=== PATIENT | female | born 1980 | race Caucasian/White ===

== ENCOUNTER → 2017-01-05 | Outpatient (CLI) | payer OTHER ==
[~2017-01-05] MED LIST: ACID REDUCER75 MG PO; ADDERALL 10 MG10 MG PO; ADDERALL 20 MG20 M1 PO; AMITIZA 24 MCG24 MC1 PO; ATIVAN1 MG PO; CELEBREX 200 M200 M1 PO; CLONIDINE0.1 PO; CVS BUFFERED A325 MG PO; DIPHENHIST50 MG PO; DOXYCYCLINE 10100 MG PO; GARCINIA CAMBO1 EACH PO; IRON325 PO; OXYCONTIN10 M1 PO; PEPCID20 MG PO; PERCOCET 10-321 EACH PO; PERCOCET 5-3251 EACH; PROBIOTIC1 EAC1 PO; PROBIOTIC1 EAC2 PO; REGLAN 5 MG TAB5 MG PO; TRAMADOL 50 MG50 MG PO; ULTRA-LIGHT RO1 EACH MC; ULTRAM 50MG TAB50 MG PO; ULTRAM ER100 MG PO; UNICOMPLEX M TA1 TA1 PO; VENTOLIN HFA 1818 GM INH; XARELTO10 MG PO; [UNRECOGNIZED DRUG - OTHER]
== END ==
LOC: NUC 08:16
DX: M85.80 Other specified disorders of bone density and structure, unspecified site (principal); Z96.643 Presence of artificial hip joint, bilateral

== ENCOUNTER → 2017-01-08 | Outpatient (CLI) | payer OTHER | LOC: CAT 14:18 | DX: R06.02 Shortness of breath (principal); R06.00 Dyspnea, unspecified ==

== ENCOUNTER → 2017-01-15 | Outpatient (CLI) | payer OTHER | LOC: MRI 08:51 | DX: M54.9 Dorsalgia, unspecified (principal); R07.9 Chest pain, unspecified ==

== ENCOUNTER → 2017-02-06 | Outpatient (CLI) | payer OTHER ==
[~2017-02-06] VITALS: Ht 170.2 cm; Wt 111.8 kg
[~2017-02-06] MED LIST changes: +LIDODERM1 EACH TRANSDERM; +MOBIC15 MG PO; +NORCO 10-325 T1 EACH PO
--- NOTE | ~2017-02-06 | HPC ---
[facility] [place] [address] [place] [address] PAIN MANAGEMENT CONSULTATION Name: KRYSTINA COLÓN Room #: REG [facility].#: [id number] Admission: 02/06/17 Attend Phys: Faisal Green MD Discharge: Date of : 80 Report #: [id number] THIS REPORT FOR: //name// CC: Faisal Murray MD DATE OF SERVICE: 02/06/2017 CHIEF COMPLAINT: Constant, stabbing, intense pain in the chest area, which makes it hard to breathe. FOLLOWUP HISTORY: The patient is a 36-year-old female who has been referred to the pain clinic because of pain and discomfort involving her chest area as well as the back area. She has had pneumonia in the past. She notes that deep breathing can exacerbate pain and discomfort which she is experiencing. She feels sometimes that her ribs are moving and is experiencing a popping sensation. She denies any trauma. She does have some pulmonary problems that has been placed on steroid. She did have a fracture of her ribs about 8 years ago after coughing. She has been on steroid in the past. 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 ALLERGIES: LEVAQUIN. CURRENT MEDICATIONS: Hydrocodone 10/325 one p.o. q. 6 hours p.r.n., Lidoderm patch q. 12 h., lactobacillus acidophilus probiotic, clonidine 0.1 mg daily, doxycycline 100 mg for acne, Pepcid 20 mg daily, Adderall 20 mg b.i.d., Benadryl, multivitamins, Ativan 1 mg, albuterol 2 puffs q. 6 hours p.r.n., Reglan 5 mg. PAST MEDICAL HISTORY: Asthma, stomach problems, joint disease/arthritis. PAST SURGICAL HISTORY: Cholecystectomy, laparotomies, right total hip replacement, left hip decompression, right total hip revision, left total hip replacement in 02/2016. REVIEW OF SYSTEMS: Questionnaire in the chart indicates that weight changes noted significant amount of weight increase after onset of immune problems, headaches, fatigue, weakness, chest pain with deep breathing, shortness of breath, asthma, wheezing, nausea, vomiting. LABORATORY DATA: MRI dated 01/15/2017 reveals, indication: Rib fracture pain/back pain/radicular symptoms in the lower thoracic region. Findings: The alignment is satisfactory. Vertebral body height is maintained with no acute ____ edema noted. No paraspinal hematoma seen. The [place] [address] PAIN MANAGEMENT CONSULTATION Name: KRYSTINA COLÓN Room #: REG [facility].#: [id number] Admission: 02/06/17 Attend Phys: Faisal Green MD Discharge: Date of : 80 Report #: [id number] modest thoracic canal. Very slight posterior ridging is seen at T5/T6, T6/T7 and T7/T8. No focal disk protrusion or intrinsic cord signal abnormalities are seen. Conus medullaris appears unremarkable. MRI of the lumbar spine dated 07/09/2016 reveals multilevel spondylosis. No significant central spinal canal or neural foraminal stenosis identified at any level. PHYSICAL EXAMINATION: VITAL SIGNS: Blood pressure 152/99, pulse 117, respiratory rate 20, height 5 feet 7 inches, weight 246 pounds. The patient does not want to know her weight. BMI is 38.6. She does complain of about some vertigo and feeling of dizziness. The patient moves from her chair to the examination table. She has anxious appearing. Palpation in numerous areas elicit pain and discomfort similar to indicating multitude of trigger point. With the patient lie flat on the table, causes her some constipation. She states that she is having some difficulty breathing lying flat. Palpation in the T9/T7 dermatomal distribution does reproduce a component of the patient's pain and discomfort. Palpation in the costovertebral angle from T5 down to about T10 are very sore on both sides. Palpation in these areas do reproduce a component of the patient's pain and discomfort. Deep breathing causes some pain and discomfort. The patient is breathing somewhat shallow. IMPRESSION: 1. Thoracic pain and discomfort with a trigger point over the left and right costochondral areas as well as in the area of the sternum. All of these areas from approximately T2 down to T10 were sore. 2. History of bilateral lumbar radiculopathy. 3. Osteophyte pathology status post left and right hip replacements. 4. Hypertension, asthma. RECOMMENDATIONS: We discussed treatment options with the patient. Risk and benefits of injections to the areas of the chest consistent with costochondritis were discussed. At this juncture, the patient chooses not to undergo additional steroid injections. She feels that they may have contributed to the problems that she has had with her hips, which required replacement. We would recommend that the patient try incentive spirometry. She has been given this item and instructed on its use. We will consider use of Meloxicam 15 mg 1 p.o. every day and note its efficacy. Possibility of injection in the affected areas of T7-T8, T8-T9 were discussed. Given that she is having some pain in this area, which is of a somewhat radicular nature, could be considered. Given the patient's body habitus, this might be somewhat difficult. We explained to her and her mother the possibility of tension pneumothorax. At this juncture, they would like to [facility] [address] [place] [address] PAIN MANAGEMENT CONSULTATION Name: KRYSTINA COLÓN Room #: REG [facility] M.Trever.#: [id number] Admission: 02/06/17 Attend Phys: Faisal Green MD Discharge: Date of : 80 Report #: [id number] continue with more conservative approach. We would like to thank you for letting us participate in her care. We hope she continues to improve. <ELECTRONICALLY SIGNED> By: Faisal Green MD 03/05/17 0822 [id number] [id number] Faisal Green MD /PMT
[2017-02-06 08:54] VITALS: BP 152/99
== END | disposition home or self-care (01) ==
LOC: PAIN 07:41
DX: M54.16 Radiculopathy, lumbar region (principal); I10 Essential (primary) hypertension; J45.909 Unspecified asthma, uncomplicated; Z98.890 Other specified postprocedural states; M54.6 Pain in thoracic spine; M19.90 Unspecified osteoarthritis, unspecified site; Z68.38 Body mass index [BMI] 38.0-38.9, adult; Z90.49 Acquired absence of other specified parts of digestive tract; K21.9 Gastro-esophageal reflux disease without esophagitis

== ENCOUNTER → 2017-02-11 | Outpatient (CLI) | payer OTHER ==
[~2017-02-11] VITALS: Ht 170.2 cm; Wt 131.5 kg
--- NOTE | ~2017-02-11 | HPC ---
[facility] [address] [place] [address] PAIN MANAGEMENT CONSULTATION Name: KRYSTINA COLÓN Room #: REG [facility].#: [id number] Admission: 02/11/17 Attend Phys: Faisal Green MD Discharge: Date of : 80 Report #: [id number] THIS REPORT FOR: //name// CC: Faisal Murray MD DATE OF SERVICE: 02/11/2017 CHIEF COMPLAINT: Constant, stabbing intense pain in the chest area. FOLLOWUP HISTORY: The patient is a 36-year-old female who has been seen in the pain clinic prior to today. She has been experiencing some right-sided rib/chest pain that goes through her back and under her breast and stabbing-like sensations. She rates her pain as 12/01. As you recall, the patient moved in October. Denies any significant trauma, but continues to have pain and discomfort in the rib area. She did have a fracture about 8 years ago after a coughing incident. She is having constant, throbbing, sharp, stabbing tenderness at this juncture. Pain is exacerbated with all activities; breathing, bending. She has tried ice and medications with little longterm benefit. She and her mother have decided that a possible injection in the area of the costochondritis area would be reasonable at this juncture. She has returned for this treatment. PHYSICAL EXAMINATION: Blood pressure is 156/95, pulse 103, respiratory rate 18, room air saturation 99%. Height 5 feet 7 inches, weight 290 pounds, BMI is 45. The patient has pain and discomfort in the chest area. Palpation in the left and right costochondral area at approximately T6-T7 are palpated. These reproduce pain and discomfort, which is causing most of her discomfort today. The right area was palpated. The patient agrees to proceed with a injection of local anesthetic and steroid at this location. PROCEDURE NOTE: The patient's right chest wall was sterilely prepped with a Betadine/chlorhexidine solution. After appropriate palpation, the areas of pain were located. A 25-gauge needle was then advanced into the area of discomfort. A total of 10 mL of 0.5% bupivacaine and 40 mg triamcinolone was injected into the area of pain and discomfort. The patient noted that the pain level was at 5/10 at the time of discharge. There was no evidence of aspiration of air. The patient will call us or return to a hospital facility if she should get short of breath or have difficulty breathing. We would like to thank you for letting us participate in her care. We hope she continues to improve. <ELECTRONICALLY SIGNED> By: Faisal Green MD 03/05/17 0822 [id number] [id number] Faisal Green MD /TARSHA
[2017-02-11 09:12] VITALS: BP 156/95
== END | disposition home or self-care (01) ==
LOC: PAIN 07:11
DX: M94.0 Chondrocostal junction syndrome [Tietze] (principal); Z98.890 Other specified postprocedural states; Z88.8 Allergy status to other drugs, medicaments and biological substances; Z79.899 Other long term (current) drug therapy

== ENCOUNTER → 2017-04-10 | Outpatient (CLI) | payer OTHER ==
[2017-04-10 15:36] LABS: FREE T4 0.8 ng/dL (0.76-1.46)
== END ==
LOC: RAD 09:08 → LABMALL 13:57 → RAD 13:57
PROVIDERS: Internal Medicine Pulmonary Disease
DX: R05 Cough (principal); R06.00 Dyspnea, unspecified; R53.83 Other fatigue

== ENCOUNTER → 2017-06-05 | Outpatient (CLI) | payer OTHER ==
[~2017-06-05] MED LIST changes: +NORCO 5-325 TA1 EACH PO; +VALIUM5 MG PO
== END ==
LOC: RAD 11:14
DX: J32.9 Chronic sinusitis, unspecified (principal); R05 Cough; R09.81 Nasal congestion

== ENCOUNTER → 2017-12-11 | Outpatient (CLI) | payer OTHER ==
[~2017-12-11] MED LIST changes: -NORCO 5-325 TA1 EACH PO; -VALIUM5 MG PO
== END ==
LOC: MRI 12-01 14:00
DX: M47.26 Other spondylosis with radiculopathy, lumbar region (principal); M51.16 Intervertebral disc disorders with radiculopathy, lumbar region; Z96.652 Presence of left artificial knee joint; Z88.1 Allergy status to other antibiotic agents

== ENCOUNTER → 2018-02-24 | Outpatient (CLI) | payer OTHER ==
[~2018-02-24] VITALS: Ht 170.2 cm; Wt 121.6 kg
[~2018-02-24] MED LIST changes: +NORCO 5-325 TA1 EACH PO; +VALIUM5 MG PO
--- NOTE | ~2018-02-24 | HPC ---
[facility] [address] [place] [address] PAIN MANAGEMENT CONSULTATION Name: KRYSTINA COLÓN [facility] [id number] Admission: 02/24/18 Attend Phys: Faisal Green MD Discharge: Date of : 80 Report #: [id number] THIS REPORT FOR: //name// CC: Faisal Murray DATE OF SERVICE: 02/24/2018 CHIEF COMPLAINT: Pain in the lower back with pain that is going down into both buttocks. FOLLOWUP HISTORY: The patient is a 37-year-old female, who has been seen in the pain clinic in the past because of chronic chest pain. She states that she still has some of the pain in the chest. Trigger points in the intercostals in the past were helpful and remain helpful. At this juncture, she is having pain and discomfort in her lower back, which is causing pain that radiates down into both buttocks and down to the level of her knees. She also has some right-sided rib pain. She describes the pain in her low back as burning with numbness, stinging sharp, aching, tender discomfort. She rates it as 7/10. It is exacerbated with bending, standing, with activities of daily living as well as walking. She did note some improvement with use of medications and with water therapy. Pain is quite incapacitating. She notes pain that radiates in the area of the right and left anterior thigh. She denies any new trauma. She has some discomfort in the L3-L4 distribution of her thighs. PAST SURGICAL HISTORY: Bilateral hip replacements, left total, in 2016. MEDICATIONS: Valium 5 mg t.i.d., hydrocodone 5/325 one p.o. q.4-6 hours, lactobacillus probiotic, clonidine 0.1 mg, doxycycline 100 mg, Pepcid 20 mg, Adderall 20 mg b.i.d., Benadryl 50 mg, iron, Ativan 1 mg t.i.d., Ventolin 18 grams 2 puffs q.6 hours p.r.n., and Reglan 5 mg. ALLERGIES: THE PATIENT IS ALLERGIC TO LEVOFLOXACIN. PAIN CLINIC ASSESSMENT AND PQRS. 1. History of osteoarthritis. The patient has osteoarthritic changes. She has had hip replacements. 2. Rheumatoid arthritis. This patient has not been treated for rheumatoid arthritis. 3. Pain intensity is 7/10. 4. Fall risk. The patient has not fallen in the last 3 months. 5. Blood thinner. The patient is not on a blood thinning medication. 6. Hypertension. The patient is not being treated for hypertension. 7. Opioid therapy greater than 6 weeks. The patient is receiving opioid medications and takes them p.r.n. 8. Risk assessment tool, low risk, 2-3 for use of opioid medication. [address] [address] PAIN MANAGEMENT CONSULTATION Name: KRYSTINA COLÓN [facility] [id number] Admission: 02/24/18 Attend Phys: Faisal Green MD Discharge: Date of : 80 Report #: [id number] 9. Functional assessment tool, 70/70. 10. Recreational drug use. The patient denies use of recreational drugs. 11. Tobacco: The patient has never smoked. 12. Alcohol: The patient denies use of alcoholic beverages. PHYSICAL EXAMINATION: GENERAL: The patient is a well-developed and well-nourished white female. She appears her stated age. She is alert and oriented x 3. She is extremely nervous. She complains of some generalized pain. Height is 5 feet 7 inches, weight is 268 pounds, and BMI is 42.0. VITAL SIGNS: Blood pressure is 160/122, pulse is 126, respiratory rate is 18, and room air saturation is 96%. HEENT: Normocephalic, atraumatic. Extraocular eye muscles intact. Sclerae nonicteric. Mucous membranes are moist. NECK: Without adenopathy or JVD. LUNGS: Clear to auscultation. HEART: Regular rate. ABDOMEN: Protuberant. Bowel sounds positive. The patient has some pain and discomfort in the right side in the left T8-T9 area. She has some complains of low back pain and discomfort. MUSCULOSKELETAL: Upper extremity muscle strength is judged to be 5-/5 for the major muscle groups in the upper extremity with symmetry and without neural changes. The patient without significant scoliosis, kyphosis, or lordosis. She complains of pain and discomfort in her hips. She complains of pain and discomfort radiating down the lateral sides of her thighs in the area of the tensor fascia marivel. The patient feels that the pain is not very problematic in her calves. She complains of pain, numbness, and tingling down into her feet. IMPRESSION: 1. History of costochondral pain. 2. History of asthma. 3. Gastrointestinal problems. 4. Joint disease/arthritis. RECOMMENDATIONS: We have discussed treatment options with the patient. She is having pain and discomfort. She describes pain and discomfort in the L3-L4 distribution in her anterior portion of her thigh. We have explained the risks and benefits of an epidural steroid injection at this juncture. She elects to proceed. PROCEDURE NOTE: The patient was taken to the procedure area. She was assisted in getting on the examination table. Her back was sterilely prepped with a Betadine solution. Fluoroscopy using anterior, posterior as well as lateral viewing were implemented. At the L3-L4 area, this area had been sterilely prepped. A 0.25% bupivacaine was infiltrated. A midline approach was directed. A 17-gauge Tuohy with loss of resistance technique was used to gain access to [facility] [address] [place] [address] PAIN MANAGEMENT CONSULTATION Name: ELDONKRYSTINA [facility] [id number] Admission: 02/24/18 Attend Phys: Faisal Green MD Discharge: Date of : 80 Report #: [id number] the epidural space. There was no CSF, heme, or paresthesia. A total of 80 mg Depo-Medrol, 40 mg triamcinolone, and 2 mL of 0.25% bupivacaine was injected. The patient tolerated the procedure well. There were no complications. She remained in the pain clinic for an appropriate amount of time. Total of about 12 seconds fluoroscopy time was used. We would like to thank you for letting us to participate in her care. We hope she continues to improve. <ELECTRONICALLY SIGNED> By: Faisal Green MD 03/08/18 1124 [id number] Faisal Green MD /PMT
[2018-02-24 08:12] VITALS: BP 160/122
== END | disposition home or self-care (01) ==
LOC: PAIN 06:39
DX: M48.061 Spinal stenosis, lumbar region without neurogenic claudication (principal); G89.29 Other chronic pain; M54.16 Radiculopathy, lumbar region; M72.2 Plantar fascial fibromatosis; J45.909 Unspecified asthma, uncomplicated; M19.90 Unspecified osteoarthritis, unspecified site; F17.210 Nicotine dependence, cigarettes, uncomplicated; Z91.040 Latex allergy status; Z79.899 Other long term (current) drug therapy; Z88.8 Allergy status to other drugs, medicaments and biological substances; Z79.891 Long term (current) use of opiate analgesic

== ENCOUNTER → 2018-07-08 | Outpatient (CLI) | payer OTHER | LOC: MRI 10:11 | DX: M47.816 Spondylosis without myelopathy or radiculopathy, lumbar region (principal); M48.07 Spinal stenosis, lumbosacral region; G89.29 Other chronic pain ==